=== PATIENT | male | born 1950 | race Caucasian/White ===

== ENCOUNTER 2019-01-31 15:35 | Emergency (ER) | payer MEDICARE, OTHER ==
[~2019-01-31] VITALS: Ht 170.2 cm; Wt 70.3 kg
--- NOTE | 2019-01-31 15:47 | NUR ---
PT HERE WITH " GIRLFRIEND". PT ALERT GCS 15. PT BEEN C/O PAIN WITH UA X 2 WEEKS. GOT BETTER THEN WORSE. PAIN RATING " 11". PT ALSO C/O AND POINTS TO BLADDER AREA FOR PAIN. BLADDER APPEARS DISTENDED AND PT DENIES TESTICLE PAION. PT DENIES BLOOD IN UA AND RELATES DECREASED STREAM. PT DENIES N/V/D. DENIES DYSPNEA AND NO ACUTE SIGHNS OF DYSPNEA NOTED. LUNGS CTA BILATERALLY. ABD SOFT AND DISTENDED IN BLADDER AREA ONLY. TENDER TO PALPATION BILATERAL LOWER QUADS ONLY PROX TO BLADDER AREA. PT TRYING TO U/A . DONE RUBÉN PT AT 1554.
--- NOTE | 2019-01-31 16:09 | NUR ---
PT HAS SCANT MINIMAL UA IN URINAL AND TECH DID BLADDER SCANNER SHOWS [address] SOLIMANS[address]
--- NOTE | 2019-01-31 16:14 | NUR ---
TECH TOLD BLADDER SCANNER RESULT.
[2019-01-31] MEDS ORDERED: LIDOCAINE UROJET 2% GEL 10 ML PKG TOP ONE (16:15)
--- NOTE | 2019-01-31 16:37 | NUR ---
[facility] BY ME W/O PROBLEMS. UA TO LAB BY ME. CLAMPED HILL FOR A WHILE.
[2019-01-31 16:43] LABS: BILIRUBIN,URINE NEGATIVE (NEGATIVE); CLARITY,URINE CLEAR; COLOR,URINE YELLOW; GLUCOSE, URINE (UA) NEGATIVE (NEGATIVE); KETONES,URINE NEGATIVE (NEGATIVE); LEUKOCYTE ESTERASE ,URINE NEGATIVE (NEGATIVE); NITRITE,URINE NEGATIVE (NEGATIVE); PH,URINE 6 (5-9); PROTEIN,URINE NEGATIVE (NEGATIVE); UROBILINOGEN,URINE NORMAL (NORMAL)
[2019-01-31 16:49] LABS: BACTERIA,URINE NEGATIVE /HPF
--- NOTE | 2019-01-31 16:49 | NUR ---
HILL HAS 1100 IN IT. I GAVE PT TEACHING INFORMATION FROM THE HILL.
--- NOTE | 2019-01-31 17:06 | NUR ---
PT REMAINS ALERT GCS 15. GIRLFRIEND IN THE ROOM. PT DENIES BLADDER PAIN BUT STILL C/O " BURNING "PAIN AT [facility]. NO ACUTE SIGHNS OF DYSPNEA NOTED. I CHANGED TO LEG BAG W/O PROBLEMS AND GAVE PT LEG BAG INSTRUCTIONS. 1000 IN ALEJANDRE AFTER STRETCHING BAG. BP MACHINE IS 135/69 AUSC HR 72 REG AUSC RESP 20 NORMAL RECHECK TEMP 98.8 P OX R/A IS 94.
--- NOTE | 2019-01-31 17:28 | NUR ---
EARLIER PT ALSO GIVEN URINAL FOR HOME USE EMPTYING ALEJANDRE AT HOME
--- NOTE | 2019-01-31 17:43 | ED GU-Male ---
General Chief Complaint: - Urinary Stated Complaint: CAN'T URINATE Nursing Triage Note: U/A C/O Source: patient Exam Limitations: no limitations History of Present Illness Date Seen by Provider: Jan 31, 2019 Time Seen by Provider: 16:07 Initial Comments Here with report of inability to urinate. States he's had problems over the last 2 weeks but it got better. Today it's worse and he is unable to get any stream. Complains of abdominal fullness. Never had anything like this before. He is from [facility]. He is here visiting a friend. Timing/Duration: week, getting worse Severity/Quality: moderate, aching Location: suprapubic Radiation: urethral Activities at Onset: none Modifying Factors: Improves With Urinating Associated Symptoms: dysuria; No fever/chills, No nausea/vomiting, No urinary frequency Allergies and Home Medications Allergies Coded Allergies: No Known Drug Allergies (Unverified , 01/31/19) Patient Home Medication List Home Medication List Reviewed: Yes Review of Systems Review of Systems Constitutional: see HPI; No chills, No fever Respiratory: no symptoms reported Cardiovascular: no symptoms reported Gastrointestinal: see HPI, abdominal pain; No nausea, No vomiting Genitourinary: pain (pain), other (retention) Musculoskeletal: no symptoms reported Psychiatric/Neurological: No Symptoms Reported Past Ilqxshz-Ejytxl-Xoykrk Hx Past Med/Social Hx: Reviewed Nursing Past Med/Soc Hx Patient Social History Alcohol Use: Denies Use Recreational Drug Use: No Smoking Status: Current Everyday Smoker Recent Foreign Travel: No Contact w/Someone Who Travel: No Recent Infectious Disease Expo: No Physical Abuse: No Sexual Abuse: No Past Medical History Surgeries: Yes Gallbladder, Pacemaker Respiratory: No Cardiac: Yes Irregular Heartbeat Neurological: No Family Medical History No Pertinent Family Hx Physical Exam Vital Signs Vital Signs - First Documented 01/31/19 15:47 Temp 99.0 Pulse 80 Resp 24 B/P (MAP) 129/79 (96) Pulse Ox 96 O2 Delivery Room Air Capillary Refill : Less Than 3 Seconds Height, Weight, BMI Height: 5'7.00" Weight: 155lbs. oz. 70.125159ay; BMI Method:Stated General Appearance: WD/WN, mild distress Neck: full range of motion, supple Cardiovascular: regular rate, rhythm, no murmur Respiratory: lungs clear, normal breath sounds Gastrointestinal: soft, distended (suprapubic region including bladder), tenderness (suprapubic region) Back: normal inspection, no CVA tenderness, no vertebral tenderness Neurologic/Psychiatric: alert, oriented x 3 Skin: normal color, warm/dry Progress/Results/Core Measures Suspected Sepsis Recent Fever Within 48 Hours: No Infection Criteria Present: Suspected New Infection New/Unexplained Altered Menta: No Sepsis Screen: No Definite Risk SIRS Temperature:99.0 Pulse: 80 Respiratory Rate: 24 Blood Pressure 129 /79 Mean: 96 Results/Orders Lab Results Laboratory Tests Test 01/31/19 16:37 Range/Units Urine Color YELLOW Urine Clarity CLEAR Urine pH 6 5-9 Urine Specific [place] 1.020 1.016-1.022 Urine Protein NEGATIVE NEGATIVE Urine Glucose (UA) NEGATIVE NEGATIVE Urine Ketones NEGATIVE NEGATIVE Urine Nitrite NEGATIVE NEGATIVE Urine Bilirubin NEGATIVE NEGATIVE Urine Urobilinogen NORMAL NORMAL MG/DL Urine Leukocyte Esterase NEGATIVE NEGATIVE Urine RBC (Auto) 2+ H NEGATIVE Urine RBC 10-25 H /HPF Urine WBC NONE /HPF Urine Squamous Epithelial Cells NONE /HPF Urine Crystals NONE /LPF Urine Bacteria NEGATIVE /HPF Urine Casts NONE /LPF Urine Mucus NEGATIVE /LPF Urine Culture Indicated NO My Orders Orders - MERCY LLAMAS MD Ua Culture If Indicated (01/31/19 16:07) Lidocaine 2% (Urojet) (Xylocaine Urojet) (01/31/19 16:15) Catheter(Urinary) Insert & Ass 03,15 (01/31/19 16:10) Vital Signs/I&O 01/31/19 15:47 Temp 99.0 Pulse 80 Resp 24 B/P (MAP) 129/79 (96) Pulse Ox 96 O2 Delivery Room Air Capillary Refill : Less Than 3 Seconds Blood Pressure Mean: 96 Progress Note : Progress Note Seen and evaluated. Evaluation done. Bladder scan noted volume of greater than 900 mL. This is after patient attempted void and only got a few drops. Orders for indwelling catheter and UA. Monitor patient. 1735: Patient feels much better although does have a little burning from the catheter. Pain is otherwise resolved. UA complete and shows few reds but likely from catheter placement. Otherwise no findings consistent with infection. Patient is to go back to [facility] or [facility]. He will find a urologist there or follow-up with his primary doctor. Escobar catheter teaching and leg bag teaching by nurse. Discharged home with return precautions. Patient verbalize understanding instructions and agreement with plan. Departure Impression Primary Impression: Urinary retention Disposition: 01 HOME, SELF-CARE Condition: Improved Departure-Patient Inst. Decision time for Depature: 17:42 Patient Instructions: Escobar Catheter, Male, Urinary Retention (DC) Add. Discharge Instructions: All discharge instructions reviewed with patient and/or family. Voiced understanding. Keep catheter in place for the next 3-7 days. You may follow-up with your Dr. at home or urologist in your hometown. You should do that this week for recheck and further evaluation. You will nature prostate checked as well as further ev aluation as indicated. You do not currently have a urinary tract infection. Drink plenty of fluids. It is okay to shower. Care for Escobar catheter and bag as instructed by the nurse and per directions given. You may take Tylenol 1000 mg every 8 hours as needed for pain. You may take ibuprofen 400 mg every 6 hours as needed for pain. Return for worse pain, fever, vomiting, weakness, breathing problems or other concerns as needed. MERCY LLAMAS MD Jan 31, 2019 17:43
--- NOTE | 2019-01-31 17:47 | NUR ---
I FORGOT THE UROJET LIDOCAINE WHEN I DID ALEJANDRE.
[2019-01-31 17:52] VITALS: BP 135/69
--- NOTE | 2019-01-31 17:52 | NUR ---
D/C INSTRCUTIONS TO PT. TOLD TO READ ALL PAPERS. NO SCRIPTS GIVEN. PT LEFT IN W/C WITH GIRLFREINED. PT KNOWS F/U. I WENT OVER THE HANDTYPED BY INFORMATION ON THE CHART. PT HAD NO IV.
== END 2019-01-31 17:52 | disposition home or self-care (01) ==
LOC: ER 15:37
DX: R33.9 Retention of urine, unspecified (principal); F17.200 Nicotine dependence, unspecified, uncomplicated; Z95.0 Presence of cardiac pacemaker
CPT/HCPCS: 81000; 99282

== ENCOUNTER 2021-01-18 19:51 | Emergency (ER) | payer MEDICARE, OTHER ==
--- OUTSIDE RECORDS SUMMARY | 2021-01-20 13:30 | XMS REPORT | Clinical Summary ---
Author Author [facility] Organization [facility] Address Unknown Phone Unavailable Care Team Providers Care Mirror Inspector Name Role Phone PCP Unavailable Allergies Not on File Medications Not on file Active Problems Not on file Social History Date Tobacco Use Types Packs/Day Years Used Never Assessed Sex Assigned at Date Recorded Not on file Last Filed Vital Signs Not on file Plan of Treatment Not on file Results Not on filefrom Last 3 Months
== END 2021-01-18 20:02 | disposition left against medical advice (07) ==
LOC: EDUNIT# 19:51 → ER 19:54
DX: M25.519 Pain in unspecified shoulder (principal)